=== PATIENT | female | born 1955 | race Caucasian/White ===

== ENCOUNTER 2016-09-15 15:03 | Observation (INO) | payer BC ==
[~2016-09-15] VITALS: Ht 166.4 cm; Wt 81.8 kg
--- NOTE | 2016-09-15 15:15 | NUR ---
NEW ADMIT FROM DR. TOTH OFFICE. OREINTED TO ROOM. CALL LIGHT IN REACH. WILL CONT. PLAN OF CARE.
--- NOTE | 2016-09-15 15:26 | NUR ---
IV ACCESS-22 GAUGE INSERTED IN LEFT HAND FOR ACCESS. TALA CHRISTIANSON RN
[2016-09-15 15:27] VITALS: BP 139/70
[2016-09-15] MEDS ORDERED: EDARBYCLOR 40-1 EACH PO (15:34)
[2016-09-15 15:40] VITALS: BP 139/70; Ht 166.4 cm; Wt 81.8 kg
[2016-09-15 16:09] LABS: BASOPHILS 0.3 % (0-2); EOSINOPHILS 1.6 % (0-7); HEMATOCRIT 42.7 % (36.0-48.0); HEMOGLOBIN 14.2 g/dL (12-16); IMMATURE GRANULOCYTES 0.3 % (0-5); LYMPHOCYTES 24.7 % (15-50); MCH 31.5 pg (26.0-34.0); MCHC 33.3 g/dL (31.0-37.0); MCV 94.7 fL (80.0-100.0); MEAN PLATELET VOLUME 9.6 fL (7.4-10.4); MONOCYTES 8.8 % (2-11); NEUTROPHILS 64.3 % (40-80); PLATELET COUNT 234 10x3/uL (130-400); RBC 4.51 10x6/uL (4.00-5.40); RDW 12.3 % (11.5-14.5); WBC 6.4 10x3/uL (4.8-10.8)
[2016-09-15 16:56] LABS: CALC OSMOLALITY 285 mosm/kg (275-300); CARBON DIOXIDE 32.3 mmol/L (21.0-32.0); CHLORIDE - SERUM 104 mmol/L (98-107); CKMB 0.4 U/L (0.0-3.6); CREATINE KINASE 46 UL (21-215); CREATININE - SERUM 1.3 mg/dL (0.6-1.3); GLUCOSE 95 mg/dL (74-106); SODIUM 140 mmol/L (136-145); T4 THYROXIN - FREE 1.09 ng/dL (0.76-1.46); THYROID STIMULATING HORMONE 1.06 uIU/mL (0.36-3.74); UREA NITROGEN 32 mg/dL (7-18); eGFR NON AFRICAN AMERICAN 44 mL/min (90-120)
[2016-09-15 17:01] LABS: TROPONIN-I < 0.017 ng/mL (0.000-0.060)
--- NOTE | 2016-09-15 19:43 | NUR ---
RESUMED CARE OF PT, GONE TO XRAY. 93 SR ON TELEMETRY. WILL CONTINUE TO MONITOR.
[2016-09-15 20:00] VITALS: BP 114/60
[2016-09-15 20:20] LABS: CKMB 0.3 U/L (0.0-3.6); CREATINE KINASE 45 UL (21-215); TROPONIN-I < 0.017 ng/mL (0.000-0.060)
[2016-09-16] VITALS: BP 103/48
[2016-09-16 01:05] LABS: CKMB 0.5 U/L (0.0-3.6); CREATINE KINASE 37 UL (21-215)
[2016-09-16 01:06] LABS: TROPONIN-I < 0.017 ng/mL (0.000-0.060)
[2016-09-16 05:21] LABS: CALCIUM 8.3 mg/dL (8.5-10.1); CARBON DIOXIDE 26.2 mmol/L (21.0-32.0); CHLORIDE - SERUM 107 mmol/L (98-107); CHOL - HDL RATIO 4.5 ratio (2.3-4.1); CHOLESTEROL, TOTAL 174 mg/dL (0-200); CKMB 0.2 U/L (0.0-3.6); CREATINE KINASE 36 UL (21-215); GLUCOSE 113 mg/dL (74-106); HDL CHOLESTEROL 39 mg/dL (32-96); LDL CHOLESTEROL 118 mg/dL (0-100); POTASSIUM - SERUM 3.8 mmol/L (3.5-5.1); SODIUM 140 mmol/L (136-145); TRIGLYCERIDE 88 mg/dL (30-200)
[2016-09-16 05:23] LABS: CALC OSMOLALITY 282 mosm/kg (275-300); CREATININE - SERUM 0.9 mg/dL (0.6-1.3); TROPONIN-I < 0.017 ng/mL (0.000-0.060); UREA NITROGEN 21 mg/dL (7-18); eGFR NON AFRICAN AMERICAN 68 mL/min (90-120)
--- NOTE | 2016-09-16 05:47 | NUR ---
LAST EKG OBTAINED, PT HAS REMAINED FREE FROM CHEST PAIN THROUGHOUT THE NIGHT. REMAINS NPO AT THIS TIME. CALL LIGHT IN REACH. WILL CONTINUE TO MONITOR.
--- NOTE | 2016-09-16 08:13 | HP ---
PATIENT: MERCEDES DENNIS MEDICAL RECORD: [id number] ACCOUNT: [id number] LOCATION:.[facility].[id number] : 56 ADMISSION DATE: 09/15/16 HISTORY AND PHYSICAL EXAMINATION REASON FOR ADMISSION: Chest pain and word salad. HISTORY OF PRESENT ILLNESS: The patient is a 61-year-old female with past history of essential hypertension and ventricular arrhythmias. She underwent cardiac cath by Dr. Rivera on 11/25/2011 that was normal. She notes some increasing peripheral edema and blood pressure elevation about 3 weeks ago. She was started on edarbyclor 40/12.5 and had marked improvement in her symptoms and her blood pressure. Approximately 2 months ago, she was on a 4-wheel ride with friends, has developed significant substernal chest discomfort. That was so bad, they tried to bring her to the Emergency Room, but the pain resolved with aspirin and she did not come. Today, while at work, someone asked her a question and she was very confused. Had trouble answering it, told the friend they could take their car to [employer] to have their headlights switch out. Later the day, she was having trouble putting a lid on her cup. 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 When she sat down, this improved, but she came frightening, was examined in the office. Her heart rate was 128, blood pressure was 100/60. She complained of tightness and pressure in her throat and chest and cramping in her right leg. She was given a 325 mg of aspirin, which she chewed and swallowed. EKG shows sinus tachycardia with no acute changes. She was direct admitted to the cardiac unit for further evaluation. She denies headache and states that her vision did not completely go. PAST MEDICAL HISTORY: Essential hypertension, history of ventricular arrhythmia controlled with atenolol in the past. History of nicotine addiction and quit several years ago. History of cervical arthritis with anterior cervical fusion, C5-C6. Osteoarthritis, history of hemorrhoids, postmenopausal status, history of migraine headaches, allergic rhinitis. PAST SURGICAL HISTORY: Laparoscopic cholecystectomy and her ACF was in 1999. FAMILY HISTORY: Mother from complications of atherosclerosis. She was 70 years of age. She also had CAD. SOCIAL HISTORY: Remote smoker, drinks occasional beer. 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 She is . ALLERGIES: None. MEDICATIONS: Edarbyclor 40/12.5 one p.o. q.a.m., which she has been fairly compliant; Frova 2.5 mg p.r.n. migraine headache and Flonase nasal spray daily. REVIEW OF SYSTEMS: GENERAL: She felt somewhat fatigued. No fever or weight loss. HEENT: Episode of scotoma-type vision and roaring in both of her ears today while standing, which resolved with lying flat. Denies hoarse voice. RESPIRATORY: No SOB or cough. CARDIAC: Chest tightness as mentioned up into her neck today and also 2 months ago, did not radiate. Denies palpitations or recent symptomatic PVCs. HISTORY AND PHYSICAL [id number] MERCEDES DENNIS GASTROINTESTINAL: No nausea, vomiting, change in stools or blood per rectum. GYNECOLOGIC: No vaginal bleeding. ENDOCRINE: Denies polyuria, polydipsia, heat or cold intolerance. NEUROLOGIC: No history of stroke, has had migraine and vascular headaches in the past, well controlled with p.r.n. Frova. MUSCULOSKELETAL: Has chronic cervical arthralgias that occasionally radiates into her right upper shoulder. She has slight decreased administrative hearing officer in the right hand versus the left she states. This has been chronic since her surgery. INTEGUMENT: No rash or itching. PSYCHIATRIC: Denies depressed mood. PHYSICAL EXAMINATION: VITAL SIGNS: Heart rate 128 and regular, blood pressure 90/58 lying and temperature 98. GENERAL: The patient is anxious. Her O2 sat is 97% on room air, she is not tachypneic. HEENT: Eyes are clear. Pupils are reactive, vision is intact. NECK: No bruits or masses. She has limited range of motion cervical spine movement right to left. CHEST: Chest wall nontender. Chest was clear. HEART: Tachycardic without murmur or gallop. ABDOMEN: Soft, nontender. EXTREMITIES: Trace bipedal edema, otherwise normal. NEUROLOGICAL: Intact. The patient was given a ____ mg aspirin chewable and swallowed with water. LABORATORY DATA: EKG showed sinus tachycardia, slight J-point elevation in lead II and poor anterior R-waves in V4 through V6. ASSESSMENT: 1. Near syncopal episode. 2. Hypotension. 3. Chest and neck pain. 4. Cervical arthritis. 5. History of essential hypertension. 6. Prior history of ventricular arrhythmia with negative cardiac catheterization in November 2011. 7. Possible transient ischemic attack. PLAN: The patient is admitted to the cardiac floor for monitoring serial cardiac enzymes. Due to her recent episode of confusion and word salad this morning, we will obtain CT of the brain. Cardiology consult will be obtained. TRANSINT:[id number] Voice Confirmation ID: [id number] DOCUMENT ID: [id number] HISTORY AND PHYSICAL [id number] MERCEDES DENNIS TIMOTHY MD at 0813 CC: [id number] DICTATION DATE: 09/15/16 164 LOCKER ROOM SUPERVISOR: 09/15/162020 ADM IN [place] [id number] [place] [id number]
[2016-09-16 08:44] VITALS: BP 104/61
--- NOTE | 2016-09-16 09:02 | NUR ---
JAMILA IGNACIO. TELEMETRY SR. NPO FOR CT CHEST. CALL LIGHT IN REACH. WILL CONT. PLAN OF CARE.
[2016-09-16] MEDS ORDERED: MIRAPEX0.125 MG PO (12:04)
[2016-09-16] MEDS ORDERED: PROTONIX40 MG PO (12:06)
[2016-09-16] MEDS ORDERED: CARDIZEM CD120 MG PO (12:08)
[2016-09-16] MEDS ORDERED: ASPIRIN EC81 M1 PO (12:10)
[2016-09-16 12:26] VITALS: BP 99/53
--- NOTE | 2016-09-16 12:33 | NUR ---
BACK FROM CT. DIET RESUMED.
--- NOTE | 2016-09-16 15:44 | NUR ---
IV AND TELEMETRY DCD. DC PLANS GIVEN. UNDERSTANDING VOICED.
== END 2016-09-16 15:44 | disposition home or self-care (01) ==
LOC: D.M2 15:03 → OBSVTIME 15:03 → D.M2 09-16 15:44
PROVIDERS: ADMIT Family Medicine
DX: R55 Syncope and collapse (principal); I95.9 Hypotension, unspecified; M46.92 Unspecified inflammatory spondylopathy, cervical region; R00.0 Tachycardia, unspecified; J30.9 Allergic rhinitis, unspecified; I10 Essential (primary) hypertension; Z78.0 Asymptomatic menopausal state

== ENCOUNTER → 2016-12-07 17:04 | Outpatient (CLI) | payer BC ==
[2016-09-15 15:40] VITALS: BMI 29.5
[~2016-12-07 17:04] MED LIST: ASPIRIN EC81 M1 PO; CARDIZEM CD120 MG PO; EDARBYCLOR 40-1 EACH PO; MIRAPEX0.125 MG PO; PROTONIX40 MG PO
== END | disposition home or self-care (01) ==
LOC: D.MAMMO 10-27 16:00
DX: Z12.31 Encounter for screening mammogram for malignant neoplasm of breast (principal)

== ENCOUNTER → 2017-01-05 16:42 | Outpatient (CLI) | payer BC ==
[2016-09-15 15:40] VITALS: BMI 29.5
== END | disposition home or self-care (01) ==
LOC: D.MAMMO 08:30
DX: R92.8 Other abnormal and inconclusive findings on diagnostic imaging of breast (principal)

== ENCOUNTER 2018-03-02 19:00 | Outpatient (CLI) | payer BC ==
[2016-09-15 15:40] VITALS: BMI 29.5
== END 2018-03-02 23:59 | disposition home or self-care (01) ==
LOC: D.MAMMO 19:00
DX: R92.8 Other abnormal and inconclusive findings on diagnostic imaging of breast (principal)

== ENCOUNTER → 2018-09-27 17:01 | Outpatient (CLI) | payer BC ==
[2016-09-15 15:40] VITALS: BMI 29.5
== END | disposition home or self-care (01) ==
LOC: D.MAMMO 10:30
PROVIDERS: ATTEND Family Medicine
DX: R92.8 Other abnormal and inconclusive findings on diagnostic imaging of breast (principal)

== ENCOUNTER 2019-05-21 08:00 | Outpatient (CLI) | payer BC ==
[2016-09-15 15:40] VITALS: BMI 29.5
== END 2019-05-21 23:59 | disposition home or self-care (01) ==
LOC: D.MAMMO 08:00
PROVIDERS: ATTEND Family Medicine
DX: Z12.31 Encounter for screening mammogram for malignant neoplasm of breast (principal)

== ENCOUNTER → 2019-09-26 16:05 | Outpatient (CLI) | payer BC ==
[2016-09-15 15:40] VITALS: BMI 29.5
== END | disposition home or self-care (01) ==
LOC: D.CT 16:05
PROVIDERS: ATTEND Family Medicine
DX: R51 Headache (principal)